=== PATIENT | female | born 1935 | race African-American/Black ===

== ENCOUNTER 2019-01-14 12:35 | Outpatient (CLI) | payer MEDICARE, BC ==
--- NOTE | 2019-01-15 03:00 | Consultation ---
DATE OF CONSULTATION: 01/14/2019 CHIEF COMPLAINT: Jaundice. HISTORY OF PRESENT ILLNESS: The patient is a very pleasant 83-year-old female without any significant past medical history except for asthma started having itchiness throughout her body about three weeks ago followed by yellowness, weight loss, was seen by the primary care physician Dr. Garcia. Apparently the patient had evidence of pancreatic lesion seen on the CT so the patient was referred to us. PAST MEDICAL HISTORY: Asthma. PAST SURGICAL HISTORY: Cholecystectomy and hysterectomy. MEDICATIONS: inhalers. FAMILY HISTORY: Sister of cancer, she did not know what kind of cancer. SOCIAL HISTORY: The patient denies any tobacco, alcohol, or drug abuse. ALLERGIES: No known allergies. REVIEW OF SYSTEMS: A 10-point review of systems was performed and positive for jaundice, itchiness, weight loss. PHYSICAL EXAMINATION: VITAL SIGNS: Stable. HEENT: Normocephalic and atraumatic. Sclerae anicteric. NECK: Supple. No evidence of obvious lymphadenopathy. CARDIOVASCULAR: Regular rate and rhythm. Plus S1 and S2. No obvious murmur. LUNGS: Decreased breath sounds bilaterally based on the supine examination. ABDOMEN: Soft and nontender. No rebound. No guarding. No peritoneal sign. EXTREMITIES: No cyanosis, no clubbing, no edema. ASSESSMENT AND PLAN: The patient is an 83-year-old female with painless jaundice, most probably secondary to pancreatic mass. The patient was given the option of doing EUS with FNA first followed by ERCP or vice versa but she feels at this time the itchiness was she wants the ERCP first so our plan will be to do ERCP on Saturday, do the brushing and biopsy in the distal common bile duct and put a stent for drainage and then the patient come back may be in a day or two for EUS and FNA. I want to thank Dr. Rivas for this kind referral. Familia Danielson M.D. DR: Carolin JOB#: [id number] CC:
== END 2019-01-14 14:35 | disposition home or self-care (01) ==
LOC: PAN 12:35
DX: R17 Unspecified jaundice (principal); R63.4 Abnormal weight loss; Z90.49 Acquired absence of other specified parts of digestive tract; Z90.710 Acquired absence of both cervix and uterus
CPT/HCPCS: 99202

== ENCOUNTER 2019-01-19 05:45 | Day surgery (SDC) | payer MEDICARE, BC ==
[2019-01-19] VITALS (12 sets, daily range): BP systolic 105–146; BP diastolic 44–74
[~2019-01-19] VITALS: Ht 160 cm; Wt 50.3 kg
[2019-01-19] MEDS ORDERED: ALBUTEROL SULF8.5 GM INH (06:39)
--- NOTE | 2019-01-19 07:11 | NUR ---
IV STARTED BY YULI MCCLURE RN. NO SIGNS OF INFILTRATION NOTED
[2019-01-19] MEDS ORDERED: Iothalamate Meglumine 60% 30ML INJ ONE (07:22)
[2019-01-19] MEDS ORDERED: Alfentanil 2ml Inj ONE (07:50)
[2019-01-19] MEDS ORDERED: Midazolam 2mg/2ml Inj ONE (07:50)
[2019-01-19] MEDS ORDERED: Lidocaine 1% Plain 30 ml INJ ONE (07:57)
[2019-01-19] MEDS ORDERED: LR 1000ml ONE (08:00)
[2019-01-19] MEDS ORDERED: Propofol 200mg/20ml IV ONE (08:00)
[2019-01-19] MEDS ORDERED: Lidocaine 1% MPF 10mg/ml 5ml ONE (08:00)
[2019-01-19] MEDS ORDERED: LR 1000ml 1,000 ML IVLG SCH (08:14)
[2019-01-19] MEDS ORDERED: fentaNYL 100 mcg/2 mL IV PRN (08:15)
[2019-01-19] MEDS ORDERED: Meperidine 50mg/ml Inj(FOR RIGORS ONLY) IVP PRN (08:15)
[2019-01-19] MEDS ORDERED: DiphenhydrAMINE 50mg/ml Inj IVP PRN (08:15)
[2019-01-19] MEDS ORDERED: Metoclopramide 10mg/2ml Inj IVP PRN (08:15)
[2019-01-19] MEDS ORDERED: oxyCODONE HCL/Acetaminophen 5/325mg ORAL PRN (08:15)
[2019-01-19] MEDS ORDERED: LORazepam Inj 2mg/ml 1ml IV PRN (08:15)
[2019-01-19] MEDS ORDERED: Midazolam 2mg/2ml Inj IVP PRN (08:15)
[2019-01-19] MEDS ORDERED: Atropine Sulfate 0.4mg/ml inj IVP PRN (08:15)
[2019-01-19] MEDS ORDERED: HYDROcodone/Acetamin 5/325 tab ORAL PRN (08:15)
[2019-01-19] MEDS ORDERED: Labetalol 5mg/ml 20ml vial IV PRN (08:15)
[2019-01-19] MEDS ORDERED: Hydromorphone 0.5mg/0.5ml inj IVP PRN (08:15)
[2019-01-19] MEDS ORDERED: Ketorolac 30mg Inj IV PRN ×2 (08:15)
[2019-01-19] MEDS ORDERED: HYDROcodone/Acetamin 7.5/325 tab ORAL PRN (08:15)
--- NOTE | 2019-01-19 08:16 | Anethesia Preoperative Eval ---
Anesthesia Pre-op PMH/ROS General Date of Evaluation: Jan 19, 2019 Time of Evaluation: 08:06 Anesthesiologist: Mague ASA Score: ASA 3 Mallampati Score Class I : Soft palate, uvula, fauces, pillars visible Class II: Soft palate, uvula, fauces visible Class III: Soft palate, base of uvula visible Class IV: Only hard plate visible Mallampati Classification: Class II Surgeon: Jagjit Diagnosis: Jaundice Surgical Procedure: ERCP Anesthesia History: none Family History: no anesthesia problems Allergies: Coded Allergies: No Known Allergies (Unverified , 01/19/19) Medications: see eMAR Patient NPO?: Yes Past Medical History Cardiovascular: Reports: HTN Pulmonary: Reports: asthma, other - Pneumonia Gastrointestinal/Genitourinary: Reports: GERD, other - Hep C HEENT: Reports: glaucoma PSxH Narrative: Appendectomy, JOSE MANUEL Anesthesia Pre-op Phys. Exam Physician Exam Last Vital Signs Date Time Temp Pulse Resp B/P (MAP) Pulse Ox O2 Delivery O2 Flow Rate FiO2 01/19/19 06:39 Room Air 01/19/19 06:37 97.3 58 18 146/74 97 Constitutional: NAD Neurologic: CN 2-12 intact Cardiovascular: RRR Respiratory: CTA Gastrointestinal: S/NT/ND Airway Exam Mallampati Score: Class II MO: limited ROM: limited Teeth: missing Dentures: upper, lower Anesthesia Pre-op A/P Risk Assessment & Plan Assessment: ASA 3 Plan: GA Status Change Before Surgery: No Heriberto Bowser MD Jan 19, 2019 08:16
--- NOTE | 2019-01-19 08:20 | Pre-Procedure Note/Attestation ---
Pre-Procedure Note/Attestation Complete Prior to Procedure Planned Procedure: not applicable Procedure Narrative: ercp Indications for Procedure Pre-Operative Diagnosis: blas Attestation I attest that I discussed the nature of the procedure; its benefits; risks and complications; and alternatives (and the risks and benefits of such alternatives ), prior to the procedure, with the patient (or the patient's legal brand representative). I attest that, if there was a reasonable possibility of needing a blood transfusion, the patient (or the patient's legal brand representative) was given the [facility] standardized written summary, pursuant to the [place] Blood Safety Act ([place] Health and Safety Code # 1645, as amended). I attest that I re-evaluated the patient just prior to the surgery and that there has been no change in the patient's H&P, except as documented below: Familia Danielson MD Jan 19, 2019 08:20
--- NOTE | 2019-01-19 08:21 | Short Stay Surgery H&P ---
History of Present Illness History of Present Illness Chief Complaint see recent office note HPI Apple Meza is a 83 year old female who was admitted on for Jaundice Patient History Allergies: Coded Allergies: No Known Allergies (Unverified , 01/19/19) Medication History Scheduled Albuterol Sulfate* (Albuterol Sulfate Mdi*), 2 PUFF INH NEEDED, (Reported) Physical Exam Vital Signs Last Vital Signs Date Time Temp Pulse Resp B/P (MAP) Pulse Ox O2 Delivery O2 Flow Rate FiO2 01/19/19 06:39 Room Air 01/19/19 06:37 97.3 58 18 146/74 97 Plan Attestation Are the patient's medical conditions optimized for surgery? Familia Danielson MD Jan 19, 2019 08:21
--- NOTE | 2019-01-19 08:51 | Immediate Post-Op Evaluation ---
Immediate Post-Op Evalulation Immediate Post-Op Evalulation Procedure: ERCP Date of Evaluation: Jan 19, 2019 Time of Evaluation: 10:07 IV Fluids: 500 LR Blood Products: 0 Estimated Blood Loss: 20 Urinary Output: 0 Blood Pressure Systolic: 108 Blood Pressure Diastolic: 51 Pulse Rate: 61 Respiratory Rate: 16 O2 Sat by Pulse Oximetry: 100 Temperature (Fahrenheit): 97 Pain Score (1-10): 2 Nausea: No Vomiting: No Complications 0 Patient Status: awake, reacts, patent, extubated, none Hydration Status: adequate Heriberto Bowser MD Jan 19, 2019 08:51
--- NOTE | 2019-01-19 09:54 | Endoscopy Procedure Note ---
Endoscopy Procedure Note General Indication for Procedure: juandice Procedures Performed: ERCP Operative Findings/Diagnosis: stricture Specimen: yes Pt Tolerated Procedure Well: Yes Estimated Blood Loss: none Anesthesia Anesthesiologist: toni Anesthesia: MAC Inserted Devices Implant(s) used?: No GI Core Measures 50 yrs or older w/o bx or poly: Not Applicable 10yrs. F/U recommended: Not Applicable Familia Danielson MD Jan 19, 2019 09:54
--- NOTE | 2019-01-19 09:54 | 48 Hour Post Anesthesia Eval ---
Post Anesthesia Evaluation Procedure: ERCP Date of Evaluation: Jan 19, 2019 Time of Evaluation: 12:21 Blood Pressure Systolic: 143 0: 65 Pulse Rate: 66 Respiratory Rate: 18 Temperature (Fahrenheit): 97.6 O2 Sat by Pulse Oximetry: 97 Airway: patent Nausea: No Vomiting: No Pain Intensity: 2 Hydration Status: adequate Cardiopulmonary Status: Stable Mental Status/LOC: patient returned to baseline Follow-up Care/Observations: 0 Post-Anesthesia Complications: 0 Follow-up care needed: ready to discharge Heriberto Bowser MD Jan 19, 2019 09:54
--- NOTE | 2019-01-19 12:09 | Cardiology Report ---
APPROVED REPORT EKG Measurement Heart [id number] Sinus bradycardia Otherwise normal ECG
--- NOTE | 2019-01-19 15:25 | Diagnostic Imaging Report ---
Indication: Abdominal pain. ERCP. Findings: Fluoroscopically captured images of the right upper quadrant of the abdomen demonstrate an endoscope with cannulation of the common bile duct and injection of contrast material. Total fluoroscopic time: 289 minutes. Number of fluoroscopic images submitted and reviewed: 7. There is fairly marked biliary ductal dilatation with demonstration of the mid to upper part of the CBD and intrahepatic biliary ducts. Balloon dilatation performed within the mid to lower part of the CBD and ampulla with subsequent placement of a stent. Impression: ERCP as above
--- NOTE | 2019-01-19 19:30 | Procedure Note ---
DATE OF PROCEDURE: 01/19/2019 SURGEON: Familia Danielson M.D. PROCEDURE: ERCP with sphincterotomy, biopsy, dilation, stent placement. ANESTHESIA: Per Heriberto Bowser M.D. INSTRUMENT: Olympus adult flexible ERCP scope. INDICATION: Jaundice. The procedure, risks, benefits, and possible consequences, including hemorrhage, aspiration, perforation and infection, and alternative treatments, were explained to the patient/legal guardian by Dr. Familia Danielson and the patient/legal guardian understood and accepted these risks. PROCEDURE IN DETAIL: After informed consent was obtained and the patient was adequately sedated, the ERCP scope was advanced from the mouth into the second portion of the duodenum. Ampulla was relatively deformed and looking down, so this procedure was very challenging. First, we tried a sphincterotome to cannulate and failed, then we tried catheter to cannulate and that failed also. At this point, we decided to do needle-knife sphincterotomy technique, which was successful and after the needle-knife sphincterotomy, we were able to cannulate the common bile duct using a sphincterotome. This was very abnormal finding. 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 The stricture site measured roughly about 3 cm. There was a significant dilation of the common bile duct above the stricture site. Common bile duct was dilated to about 12-13 mm above the stricture site all the way into the intrahepatics. Then over a guidewire, we used a sphincterotome to expand the sphincterotomy. First, we did a brush biopsy. Then, we tried to do a simple biopsy, but the biopsy forceps was not easily getting into common bile duct most probably from the stricture, so we decided not to pursue. Then over a guidewire, we used a dilator. We used 8 mm x 4 cm dilator and we dilated the stricture site successfully. Then, we placed a 10-Mongolian 7 cm stent into the distal common bile duct. After the stent was placed, a lot of bile started flowing through the stent out into the lumen of the duodenum. The patient tolerated the procedure very well without any complication. SUMMARY OF FINDINGS: Challenging ERCP with distal common bile duct stricture, most probably from pancreatic mass causing pressure, status post ERCP, needle-knife sphincterotomy followed by sphincterotomy extension, brush biopsy, dilatation, and stent placement. RECOMMENDATIONS: Follow labs. The patient to be monitored as an outpatient if he is stable to be discharged. The patient needs to come back as an outpatient for EUS and FNA. Familia Micky Danielson DR: Carolin JOB#: [id number] CC:
== END 2019-01-19 13:45 | disposition home or self-care (01) ==
LOC: GAS 05:45
DX: R17 Unspecified jaundice (principal); R00.1 Bradycardia, unspecified; I10 Essential (primary) hypertension; K21.9 Gastro-esophageal reflux disease without esophagitis; Z90.89 Acquired absence of other organs; Z86.19 Personal history of other infectious and parasitic diseases
CPT/HCPCS: 43261; 43262; 43274; 43277; 74328; 76000; 93005; J2001; J2250; J2704; J3490; Q9961; 94003; 94150

== ENCOUNTER 2019-02-03 08:40 | Outpatient (CLI) | payer MEDICARE, BC ==
[~2019-02-03 08:40] MED LIST: ALBUTEROL SULF8.5 GM INH
--- NOTE | 2019-02-03 09:28 | General Progress Note ---
Assessment/Plan Problem List: (1) Abdominal pain with jaundice ICD Codes: R10.9 - Unspecified abdominal pain; R17 - Unspecified jaundice SNOMED: 21994525, [id number] Assessment/Plan: s/p ERCP and stenting feeling better plan EUS and FNA this week Subjective ROS Limited/Unobtainable: Yes Allergies: Coded Allergies: No Known Allergies (Unverified , 01/19/19) Objective General Appearance: alert EENT: normal ENT inspection Neck: supple Cardiovascular: normal rate Respiratory/Chest: lungs clear Abdomen: normal bowel sounds, non tender, soft Extremities: non-tender Familia Danielson MD Feb 03, 2019 09:28
--- NOTE | 2019-02-03 10:11 | General Progress Note ---
Assessment/Plan Problem List: (1) Abdominal pain with jaundice ICD Codes: R10.9 - Unspecified abdominal pain; R17 - Unspecified jaundice SNOMED: 43568620, 21490530 Assessment/Plan: s/p ERCP and stenting feeling better plan EUS and FNA this week Subjective ROS Limited/Unobtainable: Yes Allergies: Coded Allergies: No Known Allergies (Unverified , 01/19/19) Objective General Appearance: alert EENT: normal ENT inspection Neck: supple Cardiovascular: normal rate Respiratory/Chest: lungs clear Abdomen: normal bowel sounds, non tender, soft Extremities: non-tender Familia Danielson MD Feb 03, 2019 10:11
== END 2019-02-03 10:40 | disposition home or self-care (01) ==
LOC: PAN 08:40
DX: R10.9 Unspecified abdominal pain (principal); R17 Unspecified jaundice

== ENCOUNTER 2019-02-06 09:06 | Day surgery (SDC) | payer MEDICARE, BC ==
[~2019-02-06] VITALS: Ht 162.6 cm; Wt 51.3 kg
[2019-02-06] VITALS (10 sets, daily range): BP systolic 134–162; BP diastolic 55–79
[2019-02-06] MEDS ORDERED: fentaNYL 100 mcg/2 mL IV ONE (09:07)
--- NOTE | 2019-02-06 09:50 | NUR ---
IV NS WAS STARTED ON LEFT FOOT BY YULI HOLLOWAY RN. NO S/S OF INFILTRATION. LABS WERE DRAWN.
[2019-02-06] MEDS ORDERED: ANORO ELLIPTA1 EACH HHN (09:58)
--- NOTE | 2019-02-06 10:11 | Anethesia Preoperative Eval ---
Anesthesia Pre-op PMH/ROS General Date of Evaluation: Feb 06, 2019 Time of Evaluation: 10:08 Anesthesiologist: Boby ASA Score: ASA 3 Mallampati Score Class I : Soft palate, uvula, fauces, pillars visible Class II: Soft palate, uvula, fauces visible Class III: Soft palate, base of uvula visible Class IV: Only hard plate visible Mallampati Classification: Class II Surgeon: lisa Diagnosis: Pancreatic lesion Surgical Procedure: EGD with EUS Anesthesia History: none Family History: no anesthesia problems Allergies: Coded Allergies: No Known Allergies (Unverified , 01/19/19) Medications: see eMAR Patient NPO?: Yes Past Medical History Cardiovascular: Reports: HTN; Denies: CAD, ND, valve dz, arrhythmia, other Pulmonary: Reports: asthma - mild Gastrointestinal/Genitourinary: Reports: GERD, other - recurrent abdominal pain Neurologic/Psychiatric: Denies: dementia, CVA, depression/anxiety, TIA, other Endocrine: Denies: DM, hypothyroidism, steroids, other HEENT: Reports: glaucoma; Denies: cataract (L), cataract (R), [place] (L), [place] (R), other Hematology/Immune: Denies: anemia, DVT, bleeding disorder, other Musculoskeletal/Integumentary: Reports: OA; Denies: RA, DJD, DDD, edema, other PMH Narrative: as above PSxH Narrative: see H&P Anesthesia Pre-op Phys. Exam Physician Exam Last Vital Signs Date Time Temp Pulse Resp B/P (MAP) Pulse Ox O2 Delivery O2 Flow Rate FiO2 02/06/19 09:46 Room Air 02/06/19 09:44 97.2 57 20 147/58 96 Constitutional: NAD Neurologic: CN 2-12 intact Cardiovascular: RRR, no M/R/G Respiratory: CTA Gastrointestinal: S/NT/ND Airway Exam Mallampati Score: Class II MO: limited Neck: stiff ROM: limited Teeth: missing Dentures: no upper, no lower Anesthesia Pre-op A/P Labs Hematology Test 02/06/19 09:45 White Blood Count Pending Red Blood Count Pending Hemoglobin Pending Hematocrit Pending Mean Corpuscular Volume Pending Mean Corpuscular Hemoglobin Pending Mean Corpuscular Hemoglobin Concent Pending Red Cell Distribution Width Pending Platelet Count Pending Mean Platelet Volume Pending Neutrophils (%) (Auto) Pending Lymphocytes (%) (Auto) Pending Monocytes (%) (Auto) Pending Eosinophils (%) (Auto) Pending Basophils (%) (Auto) Pending Chemistry Test 02/06/19 09:45 Sodium Level Pending Potassium Level Pending Chloride Level Pending Carbon Dioxide Level Pending Blood Urea Nitrogen Pending Creatinine Pending Estimat Glomerular Filtration Rate Pending Glucose Level Pending Calcium Level Pending Total Bilirubin Pending Aspartate Amino Transf (AST/SGOT) Pending Alanine Aminotransferase (ALT/SGPT) Pending Alkaline Phosphatase Pending Total Protein Pending Albumin Pending Globulin Pending CA 19-9 Antigen Pending Risk Assessment & Plan Assessment: ASA 3 Plan: MAC Status Change Before Surgery: Ervin Fitzpatrick MD Feb 06, 2019 10:11
[2019-02-06 10:12] LABS: BASOPHILS % (AUTO) 1.7 % (0.0-2.0); EOSINOPHILS % (AUTO) 1.9 % (0.0-3.0); HEMATOCRIT 38.8 % (37.0-47.0); LYMPHOCYTES % (AUTO) 21.7 % (20.0-45.0); MEAN CORPUSCULAR VOLUME 89 FL (80-99); MONOCYTES % (AUTO) 12.1 % (1.0-10.0); NEUTROPHILS % (AUTO) 62.6 % (45.0-75.0); PLATELET COUNT 114 K/UL (150-450); RED BLOOD COUNT 4.36 M/UL (4.20-5.40); RED CELL DISTRIBUTION WIDTH 16.9 % (11.6-14.8)
--- NOTE | 2019-02-06 10:20 | Pre-Procedure Note/Attestation ---
Pre-Procedure Note/Attestation Complete Prior to Procedure Planned Procedure: not applicable Procedure Narrative: eus Indications for Procedure Pre-Operative Diagnosis: pancreatic mass Attestation I attest that I discussed the nature of the procedure; its benefits; risks and complications; and alternatives (and the risks and benefits of such alternatives ), prior to the procedure, with the patient (or the patient's legal livestock sales representative). I attest that, if there was a reasonable possibility of needing a blood transfusion, the patient (or the patient's legal livestock sales representative) was given the [facility] standardized written summary, pursuant to the [place] Blood Safety Act ([place] Health and Safety Code # 1645, as amended). I attest that I re-evaluated the patient just prior to the surgery and that there has been no change in the patient's H&P, except as documented below: Familia Danielson MD Feb 06, 2019 10:20
--- NOTE | 2019-02-06 10:21 | Short Stay Surgery H&P ---
History of Present Illness History of Present Illness Chief Complaint see recent consult note HPI Apple Meza is a 83 year old female who was admitted on for Pancreatic Lesion Patient History Allergies: Coded Allergies: No Known Allergies (Unverified , 01/19/19) Medication History Scheduled Albuterol Sulfate* (Albuterol Sulfate Mdi*), 2 PUFF INH NEEDED, (Reported) Umeclidinium Brm/Vilanterol Tr (Anoro Ellipta 62.5-25 Mcg INH), 1 PUFF HHN DA, ( Reported) Physical Exam Vital Signs Last Vital Signs Date Time Temp Pulse Resp B/P (MAP) Pulse Ox O2 Delivery O2 Flow Rate FiO2 02/06/19 09:46 Room Air 02/06/19 09:44 97.2 57 20 147/58 96 Labs Laboratory Tests Test 02/06/19 09:45 White Blood Count 4.0 K/UL (4.8-10.8) L Red Blood Count 4.36 M/UL (4.20-5.40) Hemoglobin 12.0 G/DL (12.0-16.0) Hematocrit 38.8 % (37.0-47.0) Mean Corpuscular Volume 89 FL (80-99) Mean Corpuscular Hemoglobin 27.5 PG (27.0-31.0) Mean Corpuscular Hemoglobin Concent 30.8 G/DL (32.0-36.0) L Red Cell Distribution Width 16.9 % (11.6-14.8) H Platelet Count 114 K/UL (150-450) L Mean Platelet Volume 7.4 FL (6.5-10.1) Neutrophils (%) (Auto) 62.6 % (45.0-75.0) Lymphocytes (%) (Auto) 21.7 % (20.0-45.0) Monocytes (%) (Auto) 12.1 % (1.0-10.0) H Eosinophils (%) (Auto) 1.9 % (0.0-3.0) Basophils (%) (Auto) 1.7 % (0.0-2.0) Sodium Level Pending Potassium Level Pending Chloride Level Pending Carbon Dioxide Level Pending Blood Urea Nitrogen Pending Creatinine Pending Estimat Glomerular Filtration Rate Pending Glucose Level Pending Calcium Level Pending Total Bilirubin Pending Aspartate Amino Transf (AST/SGOT) Pending Alanine Aminotransferase (ALT/SGPT) Pending Alkaline Phosphatase Pending Total Protein Pending Albumin Pending Globulin Pending CA 19-9 Antigen Pending Plan Attestation Are the patient's medical conditions optimized for surgery? Familia Danielson MD Feb 06, 2019 10:20
[2019-02-06] MEDS ORDERED: Heplock Flush 100 units/ml 3 ml syr ONE (10:24)
[2019-02-06] MEDS ORDERED: Propofol 200mg/20ml IV ONE (10:30)
[2019-02-06 10:33] LABS: ALANINE AMINOTRANSFERASE 31 U/L (12-78); ALBUMIN 2.3 G/DL (3.4-5.0); ALBUMIN/GLOBULIN RATIO 0.5 (1.0-2.7); ALKALINE PHOSPHATASE 124 U/L (46-116); ANION GAP 5 mmol/L (5-15); ASPARTATE AMINO TRANSFERASE 49 U/L (15-37); BILIRUBIN,TOTAL 3.4 MG/DL (0.2-1.0); BLOOD UREA NITROGEN 15 mg/dL (7-18); CALCIUM 8.8 MG/DL (8.5-10.1); CARBON DIOXIDE 27 MMOL/L (21-32); CHLORIDE 108 MMOL/L (98-107); CREATININE 0.8 MG/DL (0.55-1.30); POTASSIUM 4.4 MMOL/L (3.5-5.1); SODIUM 140 MMOL/L (136-145)
[2019-02-06 10:34] LABS: BILIRUBIN,DIRECT 2.8 MG/DL (0.0-0.3)
--- NOTE | 2019-02-06 11:23 | Endoscopy Procedure Note ---
Endoscopy Procedure Note General Indication for Procedure: panc mass Procedures Performed: other - EUS Operative Findings/Diagnosis: same Specimen: yes Pt Tolerated Procedure Well: Yes Estimated Blood Loss: none Anesthesia Anesthesiologist: chapo Anesthesia: MAC Inserted Devices Implant(s) used?: No GI Core Measures 50 yrs or older w/o bx or poly: Not Applicable 10yrs. F/U recommended: Not Applicable Familia Danielson MD Feb 06, 2019 11:23
--- NOTE | 2019-02-06 11:31 | Immediate Post-Op Evaluation ---
Immediate Post-Op Evalulation Immediate Post-Op Evalulation Procedure: EGD with EUS and fine needle aspiration Date of Evaluation: Feb 06, 2019 Time of Evaluation: 11:30 IV Fluids: 800 Blood Products: none Estimated Blood Loss: min Urinary Output: none Blood Pressure Systolic: 157 Blood Pressure Diastolic: 62 Pulse Rate: 68 Respiratory Rate: 20 O2 Sat by Pulse Oximetry: 100 Temperature (Fahrenheit): 97.1 Pain Score (1-10): 1 Nausea: No Vomiting: No Complications none Patient Status: reacts, patent, none Hydration Status: adequate Ervin Landis MD Feb 06, 2019 11:31
--- NOTE | 2019-02-06 13:08 | 48 Hour Post Anesthesia Eval ---
Post Anesthesia Evaluation Procedure: EGD with EUS and fine needle aspiration Date of Evaluation: Feb 06, 2019 Time of Evaluation: 13:07 Blood Pressure Systolic: 134 0: 73 Pulse Rate: 68 Respiratory Rate: 20 Temperature (Fahrenheit): 97.4 O2 Sat by Pulse Oximetry: 98 Airway: patent Nausea: No Vomiting: No Pain Intensity: 2 Hydration Status: adequate Cardiopulmonary Status: stable Mental Status/LOC: patient returned to baseline Follow-up Care/Observations: n/a Post-Anesthesia Complications: none Follow-up care needed: ready to discharge Ervin Landis MD Feb 06, 2019 13:08
--- NOTE | 2019-02-06 16:30 | Procedure Note ---
DATE OF PROCEDURE: 02/06/2019 SURGEON: Familia Danielson M.D. PROCEDURE: Upper EUS with FNA. ANESTHESIA: Per Dr. Ervin Landis. INSTRUMENT: Olympus adult EUS radial and linear scope. INDICATION: Pancreatic cyst. REASON FOR PROCEDURE: The procedure, risks, benefits, and possible consequences, including hemorrhage, aspiration, perforation and infection, and alternative treatments, were explained to the patient/legal guardian by Dr. Familia Danielson and the patient/legal guardian understood and accepted these risks. PROCEDURE IN DETAIL: After informed consent was obtained and the patient was adequately sedated, the EUS scope was advanced from mouth into the second portion of the duodenum. The patient had evidence of dilated pancreatic duct about almost 1 cm. Severe pancreatic atrophy. Dilated common bile duct with biliary stent in place. There was evidence of 3 cm pancreatic head mass involving the portal vein and also multiple peripancreatic lymphadenopathy. At this time, the EUS scope, the radial was removed and linear was introduced. A 22-gauge needle was used for three passes of this mass and sample was sent to the pathology for evaluation. SUMMARY OF FINDINGS: 1. 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 2. Dilated pancreatic duct to almost 1 cm and dilated common bile duct with biliary stent in place. 3. Status post EUS and FNA x3 of 22-gauge needle, [employer]. RECOMMENDATIONS: Follow FNA results and treat accordingly. I want to thank, Dr. Rajat Salazar, for this kind referral. Familia Danielson M.D. DR: GYPSY JOB#: [id number] CC: Rajat Salazar M.D.
== END 2019-02-06 13:15 | disposition home or self-care (01) ==
LOC: GAS 09:06
DX: K86.2 Cyst of pancreas (principal); I10 Essential (primary) hypertension; K21.9 Gastro-esophageal reflux disease without esophagitis; M19.90 Unspecified osteoarthritis, unspecified site
CPT/HCPCS: 36415; 43232; 80053; 82248; 85025; J1642; J2704; J3010; 94003; 94150

== ENCOUNTER 2019-02-24 10:14 | Outpatient (CLI) | payer MEDICARE, BC ==
[~2019-02-24 10:14] MED LIST changes: +ANORO ELLIPTA1 EACH HHN
--- NOTE | 2019-02-24 10:48 | General Progress Note ---
Assessment/Plan Problem List: (1) Abdominal pain with jaundice ICD Codes: R10.9 - Unspecified abdominal pain; R17 - Unspecified jaundice SNOMED: 74173580, [id number] Assessment/Plan: s/p ERCP and stenting non diagnostic EUS/FNA will repeat EUS Subjective ROS Limited/Unobtainable: Yes Allergies: Coded Allergies: No Known Allergies (Unverified , 01/19/19) Objective General Appearance: alert EENT: normal ENT inspection Neck: supple Cardiovascular: normal rate Respiratory/Chest: lungs clear Abdomen: normal bowel sounds, non tender, soft Extremities: non-tender Familia Danielson MD Feb 24, 2019 10:48
== END 2019-02-24 12:14 | disposition home or self-care (01) ==
LOC: PAN 10:14
DX: R10.9 Unspecified abdominal pain (principal); R17 Unspecified jaundice; Z95.5 Presence of coronary angioplasty implant and graft

== ENCOUNTER 2019-05-06 07:15 | Day surgery (SDC) | payer MEDICARE, BC ==
[~2019-05-06] VITALS: Ht 170.2 cm; Wt 47.2 kg
[2019-05-06] VITALS (10 sets, daily range): BP systolic 110–124; BP diastolic 47–80
[~2019-05-06 07:15] MED LIST changes: +LR 1000ml 1,000 ML IVLG SCH
[2019-05-06] MEDS ORDERED: Midazolam 2mg/2ml Inj ONE (07:16)
[2019-05-06] MEDS ORDERED: fentaNYL 100 mcg/2 mL IV ONE (07:16)
[2019-05-06] MEDS ORDERED: Iothalamate Meglumine 60% 30ML INJ ONE (07:57)
--- NOTE | 2019-05-06 09:17 | Pre-Procedure Note/Attestation ---
Pre-Procedure Note/Attestation Complete Prior to Procedure Planned Procedure: not applicable Procedure Narrative: ercp Indications for Procedure Pre-Operative Diagnosis: panc mass Attestation I attest that I discussed the nature of the procedure; its benefits; risks and complications; and alternatives (and the risks and benefits of such alternatives ), prior to the procedure, with the patient (or the patient's legal leather goods sales representative). I attest that, if there was a reasonable possibility of needing a blood transfusion, the patient (or the patient's legal leather goods sales representative) was given the [facility] standardized written summary, pursuant to the Seth [place] Blood Safety Act ([place] Health and Safety Code # 1645, as amended). I attest that I re-evaluated the patient just prior to the surgery and that there has been no change in the patient's H&P, except as documented below: Familia Danielson MD May 06, 2019 09:17
--- NOTE | 2019-05-06 09:18 | Short Stay Surgery H&P ---
History of Present Illness History of Present Illness Chief Complaint panc mass stent exchange HPI Apple Meza is a 84 year old female who was admitted on for Jaundice Patient History Allergies: Coded Allergies: No Known Allergies (Unverified , 05/06/19) PAST MEDICAL HISTORY: (1) Abdominal pain with jaundice (2) Pancreatic mass Medication History Scheduled Albuterol Sulfate* (Albuterol Sulfate Mdi*), 1 PUFF INH DAILY, (Reported) Review of Systems Cardiovascular: Reports: no symptoms Respiratory: Reports: no symptoms Skeletal: Reports: no symptoms Gastrointestinal: Reports: no symptoms Genitourinary: Reports: no symptoms Neurologic: Reports: no symptoms Endocrine: Reports: no symptoms Physical Exam Vital Signs Last Vital Signs Date Time Temp Pulse Resp B/P (MAP) Pulse Ox O2 Delivery O2 Flow Rate FiO2 05/06/19 07:56 Room Air 05/06/19 07:49 98.9 82 24 116/80 96 Skin: normal HENT: normal Heart: normal Lungs: normal Abdomen: normal Extremities: normal Plan Plan of Care ercp Attestation Are the patient's medical conditions optimized for surgery? Attestation Response: yes Familia Danielson MD May 06, 2019 09:18
--- NOTE | 2019-05-06 09:49 | Endoscopy Procedure Note ---
Endoscopy Procedure Note General Indication for Procedure: biliary stricture, panc mass Procedures Performed: ERCP Operative Findings/Diagnosis: same Specimen: none Pt Tolerated Procedure Well: Yes Estimated Blood Loss: none Anesthesia Anesthesiologist: charisse Anesthesia: MAC Inserted Devices Implant(s) used?: No GI Core Measures 50 yrs or older w/o bx or poly: Not Applicable 10yrs. F/U recommended: Not Applicable Familia Danielson MD May 06, 2019 09:49
--- NOTE | 2019-05-06 10:00 | Immediate Post-Op Evaluation ---
Immediate Post-Op Evalulation Immediate Post-Op Evalulation Procedure: ERCP Date of Evaluation: May 06, 2019 Time of Evaluation: 10:00 IV Fluids: 300 Blood Pressure Systolic: 124 Blood Pressure Diastolic: 80 Pulse Rate: 76 Respiratory Rate: 14 O2 Sat by Pulse Oximetry: 99 Temperature (Fahrenheit): 98.9 Nausea: No Vomiting: No Complications none Patient Status: awake, reacts, patent Hydration Status: adequate Drug: Valerie Ta CRNA May 06, 2019 10:00
--- NOTE | 2019-05-06 10:02 | Anethesia Preoperative Eval ---
Anesthesia Pre-op PMH/ROS General Date of Evaluation: May 06, 2019 Time of Evaluation: 09:10 Anesthesiologist: uziel ASA Score: ASA 3 Mallampati Score Class I : Soft palate, uvula, fauces, pillars visible Class II: Soft palate, uvula, fauces visible Class III: Soft palate, base of uvula visible Class IV: Only hard plate visible Mallampati Classification: Class II Surgeon: lisa Diagnosis: jaundice Surgical Procedure: ERCP Anesthesia History: none Family History: no anesthesia problems Allergies: Coded Allergies: No Known Allergies (Unverified , 05/06/19) Medications: see eMAR Patient NPO?: Yes NPO Date: May 06, 2019 NPO Time: 00:01 Past Medical History Cardiovascular: Reports: HTN; Denies: CAD, PA, valve dz, arrhythmia, other Pulmonary: Reports: asthma; Denies: COPD, IRENE, other Gastrointestinal/Genitourinary: Denies: GERD, CRI, ESRD, other Neurologic/Psychiatric: Denies: dementia, CVA, depression/anxiety, TIA, other Endocrine: Denies: DM, hypothyroidism, steroids, other HEENT: Denies: cataract (L), cataract (R), glaucoma, KEWEENAW (L), KE[place]NAW (R), other Hematology/Immune: Denies: anemia, DVT, bleeding disorder, other Musculoskeletal/Integumentary: Denies: OA, RA, DJD, DDD, edema, other PMH Narrative: malnutrition; pancreatic CA; Jaundice Anesthesia Pre-op Phys. Exam Physician Exam Last Vital Signs Date Time Temp Pulse Resp B/P (MAP) Pulse Ox O2 Delivery O2 Flow Rate FiO2 05/06/19 07:56 Room Air 05/06/19 07:49 98.9 82 24 116/80 96 Constitutional: NAD Neurologic: CN 2-12 intact Cardiovascular: RRR Respiratory: CTA Gastrointestinal: S/NT/ND Airway Exam Mallampati Classification 3 Mallampati Score: Class III MO: limited ROM: limited Dentures: upper; no lower Anesthesia Pre-op A/P Studies Pre-op Studies: EKG - SR Risk Assessment & Plan Assessment: Frail lady; able to consent; denies changes in health Plan: MAC Status Change Before Surgery: No Pre-Antibiotics Drug: denclined Valerie Ha CRNA May 06, 2019 10:02
[2019-05-06] MEDS ORDERED: Heplock Flush 100 units/ml 3 ml syr ONE (10:49)
--- NOTE | 2019-05-06 11:21 | 48 Hour Post Anesthesia Eval ---
Post Anesthesia Evaluation Procedure: ERCP Date of Evaluation: May 06, 2019 Time of Evaluation: 11:20 Blood Pressure Systolic: 118 0: 52 Pulse Rate: 51 Respiratory Rate: 14 O2 Sat by Pulse Oximetry: 98 Airway: patent Nausea: No Vomiting: No Hydration Status: adequate Mental Status/LOC: patient returned to baseline Follow-up Care/Observations: na Post-Anesthesia Complications: none Follow-up care needed: N/A Valerie Ha CRNA May 06, 2019 11:21
--- NOTE | 2019-05-06 11:31 | Diagnostic Imaging Report ---
INDICATION: Pain, intraoperative, history of pancreatic cancer TECHNIQUE: Intraoperative imaging Fluoroscopy time: 27.3 seconds Total dose: 0.58363 mGym2 Total number of images: 5 COMPARISON: 01/19/2019 FINDINGS: Intraoperative images demonstrate removal of previously demonstrated plastic endobiliary stent, opacification of very irregular looking extrahepatic bile ducts and dilatation and beading of central intrahepatic bile ducts. Subsequent images demonstrate apparent placement of a new biliary stent, not well demonstrated. IMPRESSION: Intraoperative imaging, as described
--- NOTE | 2019-05-06 15:45 | Procedure Note ---
DATE OF PROCEDURE: 05/06/2019 SURGEON: Familia Danielson M.D. REFERRING PHYSICIAN: Rajat Salazar M.D. PROCEDURE: ERCP with stent exchange. ANESTHESIA: Per [employer] SUPERVISOR, Valerie. INSTRUMENT: Olympus adult flexible ERCP scope. INDICATION: Pancreatic mass, biliary stricture, needs a stent exchange. REASON FOR PROCEDURE: The procedure, risks, benefits, and possible consequences, including hemorrhage, aspiration, perforation and infection, and alternative treatments, were explained to the patient/legal guardian by Dr. Familia Danielson and the patient/legal guardian understood and accepted these risks. PROCEDURE IN DETAIL: After informed consent was obtained and the patient was adequately sedated, the ERCP scope was advanced from mouth into the second portion of the duodenum. The stent was seen protruding through the common bile duct. Using a snare, the stent was successfully removed. Then, we used a cannula to cannulate the common bile duct. Initial cholangiogram showed again stricture in the distal common bile duct from the pancreatic mass. Then over a guidewire, a 10-Serbian 7 cm stent was successfully placed in the distal common bile duct. Flow of contrast was excellent through the stent in the duodenum. At this time, the scope was retrieved and procedure was terminated. SUMMARY OF FINDINGS: Biliary stricture, status post stent exchange. RECOMMENDATION: The patient to be observed in the observation. If she is pain-free to be discharged today and followed as an outpatient. I want to thank Dr. Rajat Salazar for this kind referral. Familia Danielson M.D. DR: GEORGIANA JOB#: [id number] CC: Rajat Salazar M.D.
== END 2019-05-06 11:20 | disposition home or self-care (01) ==
LOC: GAS 07:15
DX: K86.9 Disease of pancreas, unspecified (principal); K83.1 Obstruction of bile duct; R17 Unspecified jaundice; I10 Essential (primary) hypertension
CPT/HCPCS: 43276; 74328; 76000; J1642; J2250; J3010; Q9961; 94003; 94150

== ENCOUNTER 2019-06-23 08:47 | Outpatient (CLI) | payer MEDICARE, BC ==
[~2019-06-23 08:47] MED LIST changes: -LR 1000ml 1,000 ML IVLG SCH
--- NOTE | 2019-06-23 11:47 | Diagnostic Imaging Report ---
Indication: Distention, ascites, patient presenting for therapeutic paracentesis Technique: Grayscale images of the 4 quadrants and the pelvic midline Comparison: none Findings: Only trace ascites fluid is demonstrated, insufficient to justify therapeutic paracentesis Impression: Trace ascites fluid-therapeutic paracentesis not performed. Case discussed with Dr. Danielson
== END 2019-06-23 10:47 | disposition home or self-care (01) ==
LOC: ULS 08:47
DX: R14.0 Abdominal distension (gaseous) (principal); R18.8 Other ascites
CPT/HCPCS: 76705

== ENCOUNTER 2019-07-28 13:21 | Outpatient (CLI) | payer MEDICARE, BC ==
--- NOTE | 2019-07-28 16:01 | Diagnostic Imaging Report ---
Indication: Bilateral lower extremity edema and pain Technique: Grayscale and duplex images of the bilateral lower extremity veins Comparison: none Findings: On the left, grayscale and duplex images demonstrate thrombus within the common femoral, femoral, and popliteal veins, resulting in absence of flow. The calf veins are patent. On the right, grayscale and duplex images demonstrate no evidence of intraluminal thrombus. Normal phasic Doppler waveforms, demonstrating normal augmentation response and no evidence of valvular insufficiency. Impression: Positive for fairly extensive left common femoral, femoral, popliteal deep venous thrombosis Dr. Simon's office already aware
== END 2019-07-28 15:21 | disposition home or self-care (01) ==
LOC: ULS 13:21
DX: R60.0 Localized edema (principal); M79.605 Pain in left leg; M79.604 Pain in right leg; I82.412 Acute embolism and thrombosis of left femoral vein; I82.432 Acute embolism and thrombosis of left popliteal vein
CPT/HCPCS: 93970